=== PATIENT | male | born 1970 | race Caucasian/White ===

== ENCOUNTER 2016-04-09 19:05 | Emergency (ER) | payer OTHER ==
[2016-04-09 19:10] VITALS: BP 172/104; PULSE 78; RESP 18; TEMP 97.9; O2SAT 96
--- NOTE | 2016-04-09 19:36 | EDPHY ---
H & P Chief Complaint Nursing Narrative: tweaked r ankle while walking today Time Seen by Provider: 04/09/16 19:16 HPI/ROS: CHIEF COMPLAINT: Ankle pain HISTORY OF PRESENT ILLNESS: Patient is a 45-year-old man who comes to the Urgent Care complaining of right ankle pain. He states that he twisted it early this morning while working on his truck. He has pain laterally below the malleolus. He denies bony tenderness. He has been ambulatory throughout the day. REVIEW OF SYSTEMS: Constitutional: denies: chills, fever, recent illness, recent injury EENTM: denies: blurred vision, double vision, nose congestion Respiratory: denies: cough, shortness of breath Cardiac: denies: chest pain, irregular heart rate, lightheadedness, palpitations Gastrointestinal/Abdominal: denies: abdominal pain, diarrhea, nausea, vomiting, blood streaked stools Genitourinary: denies: dysuria, frequency, hematuria, pain Musculoskeletal: See HPI Skin: denies: lesions, rash, jaundice, bruising Neurological: denies: headache, numbness, paresthesia, tingling, dizziness, weakness Hematologic/Lymphatic: denies: blood clots, easy bleeding, easy bruising Immunologic/allergic: denies: HIV/AIDS, transplant EXAM: GENERAL: Well-appearing, well-nourished and in no acute distress. HEAD: Atraumatic, normocephalic. EYES: Pupils equal round and reactive to light, extraocular movements intact, sclera anicteric, conjunctiva are normal. ENT: TMs normal, nares patent, oropharynx clear without exudates. Moist mucous membranes. NECK: Normal range of motion, supple without lymphadenopathy or JVD. LUNGS: Breath sounds clear to auscultation bilaterally and equal. No wheezes rales or rhonchi. HEART: Regular rate and rhythm without murmurs, rubs or gallops. ABDOMEN: Soft, nontender, normoactive bowel sounds. No guarding, no rebound. No masses appreciated. BACK: No CVA tenderness, no spinal tenderness, step-offs or deformities EXTREMITIES: Pain to just below the right malleolus laterally. No tenderness to the bone. No upper leg or foot pain. Moderate swelling. NEUROLOGICAL: Cranial nerves II through XII grossly intact. Normal speech, normal gait. 5/5 strength, normal movement in all extremities, normal sensation PSYCH: Normal mood, normal affect. SKIN: Warm, dry, normal turgor, no visible rashes or lesions. Source: Patient Exam Limitations: No limitations - Medical/Surgical History Hx Asthma: No Hx Chronic Respiratory Disease: No Hx Diabetes: No Hx Cardiac Disease: No Hx Renal Disease: No Hx Cirrhosis: No Hx Alcoholism: No Hx HIV/AIDS: No Other PMH: htn - Family History Significant Family History: Hypertension - Social History Smoking Status: Former smoker Alcohol Use: None Drug Use: None Constitutional: Initial Vital Signs Temperature (C) 36.6 C 04/09/16 19:08 Heart Rate 78 04/09/16 19:08 Respiratory Rate 18 04/09/16 19:08 Blood Pressure 172/104 H 04/09/16 19:08 O2 Sat (%) 96 04/09/16 19:08 O2 Delivery Mode Room Air Allergies/Adverse Reactions: No Known Allergies Allergy (Unverified 04/09/16 19:07) Home Medications: Medication Instructions Recorded Bystolic 04/09/16 Losartan-Hctz 100-25 mg Tab 04/09/16 Medical Decision Making - Diagnostics Imaging: X-ray: Ankle x-ray was obtained. I viewed the images myself on the PACS system. My interpretation of the images is: Negative for fracture. The radiologist interpretation is pending. ED Course/Re-evaluation: 7:45 p.m. we discussed the x-ray results. The patient and his are relieved. we discussed mobility and pain control and limited usage. Patient understands and agrees with this plan. Differential Diagnosis: Partial list of the Differential diagnosis considered include but were not limited to; ankle sprain, fracture and although unlikely based on the history and physical exam, I also considered dislocation, vascular injury. I discussed these differential diagnoses and the plan with the patient as well as the usual and expected course. The patient understands that the diagnosis is provisional and that in medicine we are not always correct and that further workup is often warranted. Usual and customary warnings were given. All of the patient's questions were answered. The patient was instructed to return to the emergency department should the symptoms at all worsen or return, otherwise to followup with the physician as we discussed. Departure - Departure Disposition: Home, Routine, Self-Care Clinical Impression: Ankle sprain Qualifiers: Encounter type: initial encounter Involved ligament of ankle: other ligament Laterality: right Qualifier Code: (S93.491A) Sprain of other ligament of right ankle, initial encounter Condition: Fair Instructions: Ankle Sprain (ED) Referrals: Nicki Neri MD [Medical Doctor] - As per Instructions Uziel Benitez MD [Medical Doctor] - As per Instructions
--- NOTE | 2016-04-09 19:45 | DX ---
Right ankle - 3 views Indication: Twisting injury. Technique: AP, mortise, and lateral views. Comparison: Right foot series dated February 06, 2016. Findings: The bones are anatomically aligned. No acute fracture or derangement of the mortise. Minima l anterior and lateral soft tissue swelling. Impression: Ankle sprain. No acute fracture.
== END 2016-04-09 20:09 | disposition home or self-care (01) ==
LOC: CED 19:05
DX: S93.491A Sprain of other ligament of right ankle, initial encounter (principal); I10 Essential (primary) hypertension; Z87.891 Personal history of nicotine dependence
CPT/HCPCS: 73610-PO; G0463-PO